=== PATIENT | male | born 1970 | race Caucasian/White ===

== ENCOUNTER 2021-01-26 17:08 | Emergency (ER) | payer SELFPAY ==
[~2021-01-26] VITALS: Ht 183.5 cm; Wt 98.6 kg
[2021-01-26] MEDS ORDERED: CASIRIVIMAB (REGN10933) 1332MG 600 MG, IMDEVIMAB (REGN10987) 1332mg 600 MG in normal sa... IV ONE (17:25)
[2021-01-26] MEDS ORDERED: LORA-269 PO (17:29)
[2021-01-26 18:31] VITALS: BP 130/82
== END 2021-01-26 18:33 | disposition home or self-care (01) ==
LOC: ER 17:09
DX: U07.1 COVID-19 (principal)
CPT/HCPCS: 99283